=== PATIENT | male | born 1995 | race American Indian/Alaskan Native ===

== ENCOUNTER 2019-08-10 20:20 | Inpatient (IN) | payer MEDICAID ==
[~2019-08-10] VITALS: Ht 170.2 cm; Wt 108.9 kg
[2019-08-10] MEDS ORDERED: ACETAMINOPHEN 325MG TABLET PO STA (21:21)
[2019-08-10] MEDS ORDERED: KETOROLAC 30MG/ML VIAL IV STA (21:21)
[2019-08-10] MEDS ORDERED: SODIUM CHLORIDE 0.9% 1,000 ML IV ONE (21:21)
[2019-08-10] MEDS ORDERED: CEFTRIAXONE 1 G PREMIX 50 ML IV ONE (21:30)
[2019-08-10 22:18] LABS: BASOPHILS % 0.5 % (0.0-2.0); CLARITY URINE CLEAR (CLEAR); COLOR URINE DARK YELLOW (YELLOW); EOSINOPHILS % 1.9 % (0.0-5.0); HEMATOCRIT. 40.4 % (42.0-52.0); HEMOGLOBIN. 13.9 g/dL (14.0-18.0); KETONES URINE 1+ (NEGATIVE); LEUKOCYTE ESTERASE URINE NEGATIVE (NEGATIVE); LYMPHOCYTES % 13.2 % (20.0-50.0); MEAN CORPUSCULAR VOLUME 84.2 fL (80.0-94.0); MEAN PLATELET VOLUME 8.3 fl (7.4-10.4); MONOCYTES % 10.6 % (2.0-8.0); NEUTROPHILS % 73.8 % (40.0-76.0); NITRITE URINE NEGATIVE (NEGATIVE); OCCULT BLOOD URINE NEGATIVE (NEGATIVE); PH URINE 6.5 (4.5-8.0); PLATELET 270 x1000/uL (130-400); PROTEIN URINE TRACE (NEGATIVE); RED CELL DISTRIBUTION WIDTH 13.1 % (11.6-14.6); SPECIFIC GRAVITY URINE 1.027 (1.005-1.030)
[2019-08-10 22:20] LABS: CHLORIDE 106 mEq/L (98-107)
[2019-08-10] MEDS ORDERED: POTASSIUM CHLORIDE 20MEQ TABLET SR PO ONE (23:00)
[2019-08-11] VITALS (7 sets, daily range): BP systolic 114–149; BP diastolic 65–94
[2019-08-11] MEDS ORDERED: METRONIDAZOLE 500 MG PREMIX 100 ML IV ONE (00:15)
[2019-08-11] MEDS ORDERED: VANCOMYCIN 1 G PREMIX 200 ML IV ONE (00:15)
[2019-08-11] MEDS ORDERED: KETOROLAC 30MG/ML VIAL IV PRN (07:30)
[2019-08-11] MEDS: SODIUM CHLORIDE 0.9% 1,000 ML IV SCH (09:04)
[2019-08-11] MEDS: ENOXAPARIN 30MG/0.3ML SYR SUBCUT SCH ×2 (09:05→20:47)
[2019-08-11 10:08] LABS: BASOPHILS % 0.6 % (0.0-2.0); EOSINOPHILS % 0.9 % (0.0-5.0); HEMATOCRIT. 41.4 % (42.0-52.0); LYMPHOCYTES % 12.2 % (20.0-50.0); MEAN CORPUSCULAR HEMOGLOBIN 28.6 pg (28.0-32.0); MEAN CORPUSCULAR VOLUME 84.3 fL (80.0-94.0); MEAN PLATELET VOLUME 8.1 fl (7.4-10.4); MONOCYTES % 11.6 % (2.0-8.0); NEUTROPHILS % 74.7 % (40.0-76.0); PLATELET 268 x1000/uL (130-400); RED BLOOD CELL COUNT 4.91 mill/uL (4.7-6.1); RED CELL DISTRIBUTION WIDTH 13.1 % (11.6-14.6)
[2019-08-11 10:14] LABS: CHLORIDE 108 mEq/L (98-107)
[2019-08-11 10:22] LABS: LDL CHOLESTEROL 122 mg/dL (5-100)
[2019-08-11 10:23] LABS: HDL CHOLESTEROL 22 mg/dL (40-59)
[2019-08-11] MEDS: METRONIDAZOLE 500 MG PREMIX 100 ML IV SCH ×2 (10:23→16:34)
[2019-08-11 10:25] LABS: *AMPHETAMINES SCREEN URINE NEGATIVE (NEGATIVE); *BARBITURATES SCREEN URINE NEGATIVE (NEGATIVE)
[2019-08-11 10:26] LABS: *BENZODIAZEPINES SCREEN URINE NEGATIVE (NEGATIVE); *COCAINE SCREEN URINE NEGATIVE (NEGATIVE); CANNABINOID URINE SCREEN NEGATIVE (NEGATIVE); METHADONE URINE SCREEN NEGATIVE (NEGATIVE); OPIATES URINE SCREEN NEGATIVE (NEGATIVE); PHENCYCLIDINE URINE SCREEN NEGATIVE (NEGATIVE)
[2019-08-11 13:45] LABS: HEPATITIS B SURFACE ANTIGEN NEGATIVE
[2019-08-11 14:15] LABS: HEPATITIS A AB IGM NEGATIVE (NEGATIVE)
[2019-08-11] MEDS ORDERED: ACETAMINOPHEN 325MG TABLET PO PRN (16:30)
[2019-08-11] MEDS: CEFTRIAXONE 1 G PREMIX 50 ML IV SCH (20:47)
[2019-08-12] VITALS: BP 122/68
[2019-08-12] MEDS: METRONIDAZOLE 500 MG PREMIX 100 ML IV SCH ×3 (02:07→16:46)
[2019-08-12] MEDS: SODIUM CHLORIDE 0.9% 1,000 ML IV SCH ×2 (02:54→13:10)
[2019-08-12 04:00] VITALS: BP 126/72
[2019-08-12 06:26] LABS: BASOPHILS % 0.3 % (0.0-2.0); EOSINOPHILS % 3.4 % (0.0-5.0); HEMATOCRIT. 41.8 % (42.0-52.0); HEMOGLOBIN. 14.4 g/dL (14.0-18.0); LYMPHOCYTES % 22.8 % (20.0-50.0); MEAN CORPUSCULAR HEMOGLOBIN 29.2 pg (28.0-32.0); MEAN PLATELET VOLUME 8.5 fl (7.4-10.4); MONOCYTES % 12.7 % (2.0-8.0); NEUTROPHILS % 60.8 % (40.0-76.0); PLATELET 270 x1000/uL (130-400); RED BLOOD CELL COUNT 4.92 mill/uL (4.7-6.1); RED CELL DISTRIBUTION WIDTH 12.9 % (11.6-14.6)
[2019-08-12 06:49] LABS: CHLORIDE 107 mEq/L (98-107)
[2019-08-12 08:00] VITALS: BP 119/72
[2019-08-12] MEDS: ENOXAPARIN 30MG/0.3ML SYR SUBCUT SCH ×2 (08:21→22:33)
[2019-08-12 13:00] VITALS: BP 125/63
[2019-08-12 16:00] VITALS: BP 120/75
[2019-08-12] MEDS: CEFTRIAXONE 1 G PREMIX 50 ML IV SCH (22:33)
[2019-08-13] MEDS: METRONIDAZOLE 500 MG PREMIX 100 ML IV SCH ×2 (05:00→09:23)
[2019-08-13 07:35] LABS: BASOPHILS % 0.4 % (0.0-2.0); HEMATOCRIT. 40.7 % (42.0-52.0); LYMPHOCYTES % 29.2 % (20.0-50.0); MEAN CORPUSCULAR VOLUME 83.9 fL (80.0-94.0); MEAN PLATELET VOLUME 8.8 fl (7.4-10.4); MONOCYTES % 13.1 % (2.0-8.0); NEUTROPHILS % 52.3 % (40.0-76.0); PLATELET 281 x1000/uL (130-400); RED BLOOD CELL COUNT 4.84 mill/uL (4.7-6.1); RED CELL DISTRIBUTION WIDTH 12.9 % (11.6-14.6)
[2019-08-13 07:41] LABS: CHLORIDE 105 mEq/L (98-107)
[2019-08-13] MEDS: ENOXAPARIN 30MG/0.3ML SYR SUBCUT SCH (09:23)
[2019-08-13] MEDS ORDERED: AMOX-424 MT (13:34)
[2019-08-13] MEDS ORDERED: ACET-2853 MT (13:34)
[2019-08-13] MEDS ORDERED: SULF1TAB48 MT (13:38)
[2019-08-13] MEDS ORDERED: METR500T MT (13:38)
[2019-08-13 14:23] VITALS: BP 130/79
== END 2019-08-13 14:45 | disposition home or self-care (01) | DRG 244 ==
LOC: ER 20:20 → 6EST 08-11 01:15 → ENRESERV 08-11 02:04
PROVIDERS: ADMIT Internal Medicine; ATTEND Internal Medicine
DX: K57.20 Diverticulitis of large intestine with perforation and abscess without bleeding (principal); E88.09 Other disorders of plasma-protein metabolism, not elsewhere classified; K59.00 Constipation, unspecified; E87.6 Hypokalemia; N20.0 Calculus of kidney; R74.0 Nonspecific elevation of levels of transaminase and lactic acid dehydrogenase [LDH]; Z79.899 Other long term (current) drug therapy
CPT/HCPCS: 36415; 71045; 74176; 80048; 80061; 80076; 80305; 81003; 86705; 86709; 86803; 87340; 93970; 99291; J0696; J1650; J1885; J3370; J3490; J7030

== ENCOUNTER 2022-07-05 09:47 | Emergency (ER) | payer SELFPAY ==
[~2022-07-05] VITALS: Ht 167.6 cm; Wt 83.0 kg
[~2022-07-05 09:47] MED LIST: ACET-3163 MT; METR500T MT; SULF1TAB48 MT
[2022-07-05] MEDS ORDERED: POLY17PO43 PO (11:18)
[2022-07-05] MEDS ORDERED: DOCU-150 PO (11:18)
[2022-07-05 11:42] VITALS: BP 116/75
== END 2022-07-05 11:44 | disposition home or self-care (01) ==
LOC: ER 09:56
DX: K59.00 Constipation, unspecified (principal); Z87.19 Personal history of other diseases of the digestive system
CPT/HCPCS: 99283

== ENCOUNTER 2022-11-03 15:39 | Emergency (ER) | payer MEDICAID ==
[~2022-11-03] VITALS: Ht 167.6 cm; Wt 89.0 kg
[~2022-11-03 15:39] MED LIST changes: +DOCU-150 PO; +POLY17PO43 PO
[2022-11-03 16:14] VITALS: BP 126/85
[2022-11-03 20:55] LABS: BASOPHILS % 0.2 % (0.0-2.0); HEMATOCRIT. 46.2 % (42.0-52.0); HEMOGLOBIN. 15.8 g/dL (14.0-18.0); LYMPHOCYTES % 30.4 % (20.0-50.0); MEAN CORPUSCULAR HEMOGLOBIN 28.8 pg (28.0-32.0); MEAN CORPUSCULAR VOLUME 84.2 fL (80.0-94.0); MEAN PLATELET VOLUME 8.2 fl (7.4-10.4); MONOCYTES % 10.5 % (2.0-8.0); NEUTROPHILS % 56.9 % (40.0-76.0); PLATELET 282 x1000/uL (130-400); RED BLOOD CELL COUNT 5.48 mill/uL (4.7-6.1); RED CELL DISTRIBUTION WIDTH 13.3 % (11.6-14.6)
[2022-11-03 20:58] LABS: CHLORIDE 103 mEq/L (98-107)
[2022-11-03] MEDS ORDERED: KETOROLAC 30MG/ML VIAL IM ONE (21:15)
[2022-11-03 21:35] LABS: CLARITY URINE CLEAR (CLEAR); COLOR URINE DARK YELLOW (YELLOW); KETONES URINE 2+ (NEGATIVE); LEUKOCYTE ESTERASE URINE 1+ (NEGATIVE); NITRITE URINE NEGATIVE (NEGATIVE); OCCULT BLOOD URINE 3+ (NEGATIVE); PROTEIN URINE 1+ (NEGATIVE); SPECIFIC GRAVITY URINE 1.034 (1.005-1.030)
[2022-11-03] MEDS ORDERED: IBUP-2028 MT (22:36)
[2022-11-03] MEDS ORDERED: CEPH500C2 MT (22:36)
== END 2022-11-03 23:31 | disposition home or self-care (01) ==
LOC: ER 15:39
DX: R10.32 Left lower quadrant pain (principal); M54.50 Low back pain, unspecified
CPT/HCPCS: 36415; 80053; 81003; 83605; 83690; 85025; 96372; 99283; J1885